=== PATIENT | male | born 1955 | race Caucasian/White ===

== ENCOUNTER 2017-01-02 05:36 | Day surgery (SDC) | payer SELFPAY ==
[~2017-01-02] VITALS: Ht 167.6 cm; Wt 84.5 kg
[2017-01-02] VITALS (30 sets, daily range): BP systolic 103–176; BP diastolic 58–94; PULSE 68–91; RESP 14–18; TEMP 96–98.1; O2SAT 92–99; Ht 167.6 cm; Wt 84.5 kg
[~2017-01-02 05:36] MED LIST: IBUP-1547 PO
[2017-01-02] MEDS: LR 1,000 ML IV SCH ×2 (06:31→11:08)
[2017-01-02] MEDS ORDERED: BUPIVACAINE 0.25%/EPI 1:200,000 30ml SDV ONE (06:47)
[2017-01-02] MEDS ORDERED: LIDOCAINE 1% (10mg/ml) 30ml SDV ONE (06:47)
--- NOTE | 2017-01-02 06:57 | ANESPREOP ---
Anesthesia Record Date and Time DATE: 01/02/17 TIME: 06:55 Pre-Op Diagnosis Right inguinal hernia Proposed Surgical Procedure ROBOTIC RT ING HERNIA REPAIR NPO since: Midnight Allergies: Coded Allergies: No Known Drug Allergies (Verified Allergy, Unknown, 01/01/17) Ht/Wt/BMI Height: 5 ' 6.00 " Weight: 84.500 kg BMI: 30.1 kg/m2 Vital Signs Date Time Temp Pulse Resp B/P Pulse Ox O2 Delivery O2 Flow Rate FiO2 01/02/17 06:12 75 16 01/02/17 05:52 98.1 136/94 95 Room Air Medications Inpatient Medications Current Medications Medications (Trade) Dose Ordered Sig/Soo Start Time Stop Time Status Last Admin Dose Admin Lactated Ringer's (Lactated Ringers) 1,000 ml @ 125 mls/hr Q8H 01/02/17 07:00 01/02/17 06:31 125 MLS/HR Ibuprofen (Ibuprofen) 800 Mg Tablet, 1 TAB PO Q6H PRN for PAIN, (Reported) Last Taken: on 01/01/17 2100 Currently on Beta Janell: No Medical/Surgical History Anesthesia PMH: Reports: Sleep Apnea, Denies: *Diabetes, Anesthesia Reactions ( NO AIRWAY ISSUES), Arthritis, Cancer, Clotting Problems, Glaucoma, Malignant Hyperthermia, Renal Disease, Thyroid Disease Smoking Status: Former smoker Has pt. smoked today?: No Use Chewing Tobacco?: No Second Hand Exposure: No Substance Use Type: does not use Alcohol Intake: none Past Surgical History Orthopedic Surgeries: Abdominal Surgeries: Yes - HERNIA REPAIR Genitourinary Surgeries: Cardiac Surgeries: Endocrine Surgeries: Reproductive Surgeries: Neurological Surgeries: Ear Surgeries: Nose Surgeries: Throat Surgeries: Other Surgeries: Yes - ALL TEETH REMOVED FOR DENTURES Anesthesia Adverse Reactions: FOUND none Family Hx of Anesthesia Advers: none Hx of Motion Sickness: No Pertinent Findings EKG Rhythm: Sinus Rhythm Physical Exam Respiratory: Lungs clear Cardiovascular: FOUND Regular rate, rhythm Airway Assessment Mallampati Score: II TMD: 3 Fingerbreadths Neck Extension: Fair Overall Assessment: No Airway Concerns ASA: 2 Plan Anesthesia Plan: GETA Discussion Discussed risks/options/alternatives of anesthesia and questions answered. Patient consents. Nursing pain assessment noted. Present: Family Member Attestation Statement Prior to the delivery of any anesthetic medication, I examined the patient, developed the plan, obtained the patient's consent and discussed the risk and benefits of the procedure with the patient/guardian. RXO DE LEON VICTIM WITNESS ADMINISTRATOR Jan 02, 2017 06:57
[2017-01-02] MEDS ORDERED: LIDOCAINE 1% (10mg/ml) 2ml SDV INJ ONE (07:00)
[2017-01-02] MEDS ORDERED: ROCURONIUM 50mg/5ml INJECTION IV ONE (07:15)
[2017-01-02] MEDS ORDERED: PROPOFOL 200mg 20 ML IV ONE (07:15)
[2017-01-02] MEDS ORDERED: LIDOCAINE 2% (20mg/ml) 5ml PF SDV ONE (07:15)
[2017-01-02] MEDS ORDERED: FENTANYL 100mcg/2ml INJECTION ONE ×2 (07:16→09:53)
[2017-01-02] MEDS ORDERED: CEFAZOLIN 1 GRAM INJECTION IV ONE (07:30)
[2017-01-02] MEDS ORDERED: CEFAZOLIN 2 G in NORMAL SALINE 100 ML IV ONE (07:30)
[2017-01-02] MEDS ORDERED: DEXAMETHASONE 4mg/ml - 1ml INJECTION ONE (10:05)
[2017-01-02] MEDS ORDERED: ONDANSETRON 4mg/2ml INJECTION ONE (10:05)
[2017-01-02] MEDS ORDERED: KETOROLAC 30mg/ml INJECTION ONE (10:05)
[2017-01-02] MEDS ORDERED: GLYCOPYRROLATE 0.4mg/2ml INJECTION ONE (10:42)
[2017-01-02] MEDS ORDERED: NEOSTIGMINE 10mg/10ml INJECTION ONE (10:42)
--- NOTE | 2017-01-02 10:43 | GSPOSTPROC ---
Immediate Operative Note DATE: 01/02/17 TIME: 10:42 Postop Diagnosis: * recurrent right reducible indirect inguinal hernia * recurrent right reducible direct inguinal hernia Surgery Type: Robotic Surgery Lateral: Right Surgical Procedure: Hernia Repair (inguinal for recurrent hernias) Surgeon: Bladimir ASA: 2 SONALI COLMENARES MD Jan 02, 2017 10:43
[2017-01-02] MEDS ORDERED: HYDR-4246 PO (10:44)
[2017-01-02] MEDS ORDERED: HYDROMORPHONE 2mg/ml INJECTION IV PRN ×2 (10:45→11:00)
[2017-01-02] MEDS ORDERED: HYDROCODONE/APAP 5 mg/325 mg TABLET PO PRN (10:45)
[2017-01-02] MEDS ORDERED: KETOROLAC 30mg/ml INJECTION IV PRN (10:45)
[2017-01-02] MEDS ORDERED: METOCLOPRAMIDE 10mg/2ml INJECTION IV PRN ×2 (10:45→11:00)
--- NOTE | 2017-01-02 10:59 | ANESPO ---
Post-Op Note Date 01/02/17 Time: 10:58 Status Pt Participated in Evaluation: Pt participated in person Vital Signs Date Time Temp Pulse Resp B/P Pulse Ox O2 Delivery O2 Flow Rate FiO2 01/02/17 06:12 75 16 01/02/17 05:52 98.1 136/94 95 Room Air Respiratory Function: Airway patent Telemetry Pattern: SR Mental Status: Alert/oriented Pain Level Intensity: 0 Hydration: Nausea (Treated) Complications during Recovery None apparent Follow-Up Instructions Instructions Per Surgeon ROX DE LEON WRINKLE CHASER Jan 02, 2017 10:59
[2017-01-02] MEDS ORDERED: ONDANSETRON 4mg/2ml INJECTION IV PRN (11:00)
[2017-01-02] MEDS ORDERED: ALBUTEROL INH.SOLN. 2.5mg/3ml (0.083%) Neb. AEROSOL ONE (11:45)
--- NOTE | 2017-01-03 23:04 | OPNOTEF ---
DATE OF OPERATION 01/02/2017 SURGEON Sameer Garrison MD PREOPERATIVE DIAGNOSIS Recurrent reducible right inguinal hernia. POSTOPERATIVE DIAGNOSES 1. Recurrent reducible right indirect inguinal hernia. 2. Recurrent reducible right direct inguinal hernia. PROCEDURE Robotic right inguinal hernia repair for recurrent hernia with placement of mesh. ANESTHESIA General. ASA Class 2. INDICATIONS The patient is a 61-year-old male who had a right open inguinal hernia repair without mesh in 1986. He had had recurrence of a bulge about 8 to 14 months ago and was having symptoms in the area. When he was seen in clinic and the recurrent hernia was diagnosed it was recommended that he undergo a robotic repair to approach the hernia from a different direction than was used during his prior operation. FINDINGS There was a large indirect hernia defect but also a [id number] direct hernia defect noted in the right groin. Laparoscopy did not reveal any hernia defect in the left groin. The appendix was visualized and was normal. It had attachments near the hernia sac which were divided to free the appendix from the area of the hernia repair. DESCRIPTION OF PROCEDURE After informed consent was obtained the patient was taken to the operating room and placed in supine position. General endotracheal anesthesia was administered by the anesthesia team. The patient's abdomen and groins were prepped and draped in the usual sterile fashion. Local was used to anesthetize the skin above the umbilicus. A small skin incision was made with an 11-blade scalpel. The umbilicus was elevated with a penetrating towel clip and a Veress needle was inserted and was used to obtain pneumoperitoneum. A robotic cannula trocar was then placed followed by the robotic laparoscope. The laparoscope was used to guide placement of two additional ports with one in the right subcostal region and one in the left subcostal region. Both of these ports were placed under direct vision with the laparoscope. With ports in position the robotic patient cart was brought into position and the patient was positioned in rather steep Trendelenburg given the need for exposure in the right groin. No other hernia defect was noted. A Bard 3-D Max Light large mesh fashioned for the right groin was then inserted along with a 12-inch 2-0 absorbable V-Loc suture and a 3-0 Vicryl suture. The robotic patient cart was connected to the robotic cannulae and a monopolar scissors and fenestrated bipolar forceps were inserted under direct vision. Scissors were used to divide the peritoneum and dissection was performed in the preperitoneal space down to the hernia sacs. Careful dissection was performed to retract the hernia sacs from within the inguinal canal and separate them from the surrounding structures. It was more tedious dissection along the indirect hernia sac given the presence of the cord structures. There was some preperitoneal fat that was also removed from the inguinal canal. Further reflection of the peritoneum was performed until adequate space was created. Prior to creating the peritoneal flaps some adhesions in the right lower quadrant including an attachment point of the appendix to the lateral abdominal wall was performed to free up space for the dissection. Once adequate space was created and dissection had been continued down to the pubic symphysis and Lane's ligament the mesh was positioned within the right lower quadrant. It was tacked to the pubic symphysis and Lane's ligament along with three sutures securing the superior edge of the mesh with 3-0 Vicryl sutures. This allowed excellent overlap with all of the hernia defects. Hemostasis was assured. The right lower quadrant was irrigated and suctioned free of the minimal bleeding that had occurred. The peritoneal flap was then closed using the running 2-0 absorbable V-Loc suture. Four throws of the suture overlapped backwards with the suture line to secure the stitch. This was then cut. The preperitoneal fat that had been removed from the inguinal canal was retrieved along with the two needles. With the hernia repair complete the robotic patient cart was undocked and the subcostal ports were removed under direct vision. Pneumoperitoneum was evacuated and the umbilical port was removed. All of the skin incisions were closed with buried interrupted 4-0 Monocryl stitches. Benzoin, Steri-Strips and sterile Band-Aids were applied as a dressing. The patient tolerated the procedure well. He was awakened, extubated and transferred to the recovery area in stable condition. BREA
== END 2017-01-02 15:24 | disposition home or self-care (01) ==
LOC: SCU 05:36 → SRG 05:37 → SCU 15:24
PROVIDERS: ATTEND Surgery
DX: K40.91 Unilateral inguinal hernia, without obstruction or gangrene, recurrent (principal); Z87.891 Personal history of nicotine dependence
CPT/HCPCS: 94640